=== PATIENT | female | born 1945 | race Caucasian/White ===

== ENCOUNTER → 2017-04-11 | Outpatient (CLI) | payer MEDICARE ==
--- NOTE | 2017-04-11 15:27 | RAD ---
CT lumbar spine without contrast History: Low back pain. Comparison: Same examination 10/27/2015. Technique: Noncontrast helical CT of the lumbar spine was performed. Axial, sagittal, and coronal reconstructions were obtained. One or more of the following individualized dose reduction techniques were utilized for the study: Automated exposure control Adjustment of mA and/or kV according to patient's size Use of iterative reconstruction technique. Findings: Evaluation of spinal contents is limited by lack of intrathecal contrast. Alignment of the lumbar spine demonstrates grade 1 spondylolisthesis at L4-5 from facet hypertrophy. There is no evidence of acute fracture or acute malalignment. No prevertebral soft tissue swelling is identified. There are 5 lumbar type vertebral bodies. T11-12 level demonstrates mild facet hypertrophy and mild buckling ligamentum flavum. Minimal posterior disc bulge is seen. L1-2 level demonstrates a minimal disc bulge. There is buckling of ligamentum flavum and mild bilateral facet hypertrophy. L2-3 level demonstrates interval progression of degenerative disc disease. There is significant interval loss of disc height as well as irregularity of the disc. There is interval development of disc calcification/osteophyte complex. There is a suspected severe spinal canal stenosis at this level with the AP dimension of the thecal sac in the midline of the spinal canal estimated to measure 5 mm. There is mild-moderate right and mild bilateral facet hypertrophy. There is buckling ligamentum flavum. Severe right and moderate left neural foraminal narrowing is seen. L3-4 level demonstrates progression of degenerative disc disease with vacuum disc phenomenon and increased severity of the disc bulge. There is moderate bilateral facet hypertrophy and buckling ligamentum flavum. Degenerative changes combined with enlargement of posterior epidural fat create moderate-severe spinal canal stenosis with AP dimension of the thecal sac estimated at 6-7 mm. There is mild right and moderate left neural foraminal narrowing. L4-5 level demonstrates uncovering of the disc secondary to spondylolisthesis. Severe bilateral facet hypertrophy is present. There is buckling ligamentum flavum. There is likely severe trefoil spinal canal stenosis with AP dimension of the thecal sac estimated at 5 mm. Mild-moderate bilateral neural foraminal narrowing is present. L5-S1 level demonstrates advanced bilateral facet hypertrophy. Degenerative disc disease with vacuum disc phenomenon and posterior disc osteophyte complex is seen. Severe bilateral neural foraminal narrowing is present. No spinal canal stenosis is identified. Impression: 1. Multilevel degeneration. 2. Degenerative disc disease at L2-3 has progressed. There is now severe spinal canal stenosis at this level. 3. Moderate-severe spinal canal stenosis is seen at L3-4 which is thought progressed from previous study. 4. L4-5 level demonstrates severe spinal canal stenosis which is thought progressed from previous study. 5. Multiple levels demonstrate neural foraminal narrowing, severe at L5-S1, with lesser neural foraminal narrowing at other levels.
== END | disposition home or self-care (01) ==
LOC: CT 12:58
PROVIDERS: ATTEND Anesthesiology Pain Medicine
DX: M54.16 Radiculopathy, lumbar region (principal); M51.36 Other intervertebral disc degeneration, lumbar region; M48.061 Spinal stenosis, lumbar region without neurogenic claudication
CPT/HCPCS: 72131

== ENCOUNTER 2017-05-13 18:04 | Emergency (ER) | payer MEDICARE ==
[~2017-05-13] VITALS: Ht 170.2 cm; Wt 108.9 kg
[2017-05-13 18:52] LABS: COLOR,URINE RED
[2017-05-13 18:53] LABS: BACTERIA,URINE 0 /HPF (0-FEW); BILIRUBIN,URINE NEG (NEG); CLARITY,URINE BLOODY; GLUCOSE,URINE NEG (NEG); NITRITE,URINE NEG (NEG); RBC,URINE TNTC /HPF (0-2); UROBILINOGEN,URINE 0.2 mg/dL (0.2 mg/dL); WBC,URINE OCC /HPF (0-4)
[2017-05-13] MEDS ORDERED: IV NORMAL SALINE 500ML 500 ML IV ONE (19:45)
[2017-05-13] MEDS ORDERED: IOHEXOL 300 MG/ML 75 ML VIAL. IV ONE (19:45)
[2017-05-13] MEDS ORDERED: CONTRAST GIVEN MC PRN (20:00)
[2017-05-13 20:52] LABS: CALCIUM 9.1 mg/dL (8.5-10.1); CREATININE 1.7 mg/dL (0.6-1.0); GFR 29.5; POTASSIUM 4.4 mmol/L (3.5-5.1)
[2017-05-13 20:53] LABS: BASO % 0 % (0-3); EOS # 0.4 x10^3/uL (0.0-0.7); EOS % 4 % (0-3); HEMATOCRIT 34.1 % (36.0-47.0); LYMPH # 1.5 x10^3/uL (1.0-4.8); LYMPH % 16 % (24-48); MEAN CORPUSCULAR HEMOGLOBIN 28 pg (25-35); MEAN CORPUSCULAR HGB CONC 32 g/dL (31-37); MEAN CORPUSCULAR VOLUME 85 fL (79-100); MONO % 11 % (0-9); NEUT # 6.5 x10^3uL (1.8-7.7); NEUT % 69 % (31-73); PLATELET COUNT 380 x10^3/uL (140-400); RED BLOOD COUNT 4.02 x10^6/uL (3.50-5.40); RED CELL DISTRIBUTION WIDTH 14.9 % (11.5-14.5); WHITE BLOOD COUNT 9.5 x10^3/uL (4.0-11.0)
--- NOTE | 2017-05-13 22:02 | RAD ---
Examination: CT of the abdomen pelvis without contrast HISTORY: History of hematuria, dysuria COMPARISON: None available TECHNIQUE: Axial CT images of the abdomen pelvis were performed without contrast. Coronal sagittal reformats are performed Exposure: One or more of the following individualized dose reduction techniques were utilized for this examination: 1. Automated exposure control 2. Adjustment of the mA and/or kV according to patient size 3. Use of iterative reconstruction technique FINDINGS: Minimal bibasilar lung atelectasis. No evidence of free air identified in the abdomen. The evaluation of the solid organs is limited due to lack of IV contrast. The evaluation of the bowel is limited due to lack of oral contrast. Visualized noncontrasted liver, spleen, adrenals grossly appears unremarkable.. Cholecystectomy clips identified. The stomach is mildly distended. Small duodenal diverticulum is identified at the junction second and third part of the duodenum. The visualized pancreas grossly appears unremarkable. The small bowel is nondilated. The appendix is normal. Feces and gas noted in the colon. Few sigmoid colon diverticulosis. Urinary bladder is mildly distended. In the posterior aspect of the urinary bladder abutting the posterior wall of the urinary bladder, there is a 3.1 x 1.6 cm hyperdensity. The visualized uterus, adnexa grossly appears unremarkable. There is a 5.1 x 3.9 cm masslike density identified in the anterior aspect of the right kidney measuring 15 Hounsfield units. Mild fat stranding identified about the bilateral kidneys. There is punctate 1 mm intrarenal collecting system calculus identified in the right kidney. No evidence of hydronephrosis. Small anterior abdominal wall ventral hernia. Moderate degenerative changes lumbar spine. Small posterior disc protrusion identified at L2-L3, L5-S1 vertebral levels. IMPRESSION: 1. 5.1 cm masslike density identified in the anterior aspect of the right kidney measuring 15 Hounsfield units could be renal mass or cyst. Recommend CT with IV contrast and/or ultrasound for further evaluation. 2. Hyperdensity identified abutting the posterior wall of the urinary bladder measuring 3.1 cm could be clot or mass. Recommend ultrasound urinary bladder for further evaluation. 2. Mild bilateral perinephric fat stranding, nonspecific. 4. Punctate 1 mm intrarenal collecting system calculus right kidney. Electronically signed by: Nicholas Sanchez MD (05/13/2017 9:58 PM) [facility]
--- NOTE | 2017-05-13 23:40 | PHYS DOC ---
Past History Past Medical History: Diabetes, Hypertension, Other Past Surgical History: No Surgical History Alcohol Use: None Drug Use: None Adult General Chief Complaint Chief Complaint: BLOOD IN URINE HPI HPI Patient is a 72 year old F who presents with blood in her urine over the past 2- 3 days. Shelley states that she has also had difficulty urinating. She states that she has passed large clots and after the clots are gone and she notes improvement in airflow. She denies pain in her back or abdomen. She denies discomfort with urination with when her flow seems to be normal. She has no other known associated symptoms. She has no known exacerbating or relieving factors. She has no history of smoker but has no extensive history of secondhand smoke. Review of Systems Review of Systems Constitutional: Denies fever or chills [] Eyes: Denies change in visual acuity, redness, or eye pain [] HENT: Denies nasal congestion or sore throat [] Respiratory: Denies cough or shortness of breath [] Cardiovascular: No additional information not addressed in HPI [] GI: Denies abdominal pain, nausea, vomiting, bloody stools or diarrhea [] : Denies dysuria Musculoskeletal: Denies back pain or joint pain [] Integument: Denies rash or skin lesions [] Neurologic: Denies headache, focal weakness or sensory changes [] Endocrine: Denies polyuria or polydipsia [] All other systems were reviewed and found to be within normal limits, except as documented in this note. Family History Family History No pertinent family medical was reported Current Medications Current Medications Current medications were reviewed Current Medications Medications (Trade) Dose Ordered Sig/[facility] Start Time Stop Time Status Last Admin Dose Admin Info (Do NOT chart on this entry -- for MONITORING) 1 each PRN DAILY PRN 05/13/17 20:00 05/15/17 19:59 Iohexol (Omnipaque 300 Mg/ml) 75 ml 1X ONCE 05/13/17 19:45 05/13/17 19:59 DC Sodium Chloride 500 ml @ 500 mls/hr 1X ONCE 05/13/17 19:45 05/13/17 20:44 DC 05/13/17 20:30 500 MLS/HR Allergies Allergies Allergies Coded Allergies Type Severity Reaction Last Updated Verified No Known Drug Allergies 05/13/17 No Physical Exam Physical Exam Constitutional: Well developed, well nourished, no acute distress, non-toxic appearance. [] HENT: Normocephalic, atraumatic, bilateral external ears normal, oropharynx moist, no oral exudates, nose normal. [] Eyes: EOMI, conjunctiva normal, no discharge. [] Neck: Normal range of motion, no tenderness, supple, no stridor. [] Cardiovascular:Heart rate regular rhythm, Lungs & Thorax: Bilateral breath sounds clear to auscultation [] Abdomen: Bowel sounds normal, soft, no tenderness, no masses, no pulsatile masses. [] Skin: Warm, dry, no erythema, no rash. [] Back: No tenderness, no CVA tenderness. [] Extremities: No tenderness, no cyanosis, no clubbing, ROM intact, no edema. [] Neurologic: Alert and oriented X 3, normal motor function, normal sensory function, no focal deficits noted. [] Psychologic: Affect normal, judgement normal, mood normal. [] Current Patient Data Vital Signs Vital Signs Date Time Temp Pulse Resp B/P (MAP) Pulse Ox O2 Delivery O2 Flow Rate FiO2 05/13/17 23:13 79 16 146/101 (116) 97 Room Air 05/13/17 18:14 98.2 Lab Results Laboratory Tests Test 05/13/17 18:33 05/13/17 20:08 Urine Collection Type U cath Urine Color Red Urine Clarity Bloody Urine pH 5.5 Urine Specific [place] 1.020 Urine Protein >100 mg/dl (NEG-TRACE) Urine Glucose (UA) Neg mg/dL (NEG) Urine Ketones (Stick) Neg mg/dL (NEG) Urine Blood Large (NEG) Urine Nitrite Neg (NEG) Urine Bilirubin Neg (NEG) Urine Urobilinogen Dipstick 0.2 mg/dL (0.2 mg/dL) Urine Leukocyte Esterase Neg (NEG) Urine RBC Tntc /HPF (0-2) Urine WBC Occ /HPF (0-4) Urine Squamous Epithelial Cells None /LPF Urine Bacteria 0 /HPF (0-FEW) White Blood Count 9.5 x10^3/uL (4.0-11.0) Red Blood Count 4.02 x10^6/uL (3.50-5.40) Hemoglobin 11.0 g/dL (12.0-15.5) L Hematocrit 34.1 % (36.0-47.0) L Mean Corpuscular Volume 85 fL (79-100) Mean Corpuscular Hemoglobin 28 pg (25-35) Mean Corpuscular Hemoglobin Concent 32 g/dL (31-37) Red Cell Distribution Width 14.9 % (11.5-14.5) H Platelet Count 380 x10^3/uL (140-400) Neutrophils (%) (Auto) 69 % (31-73) Lymphocytes (%) (Auto) 16 % (24-48) L Monocytes (%) (Auto) 11 % (0-9) H Eosinophils (%) (Auto) 4 % (0-3) H Basophils (%) (Auto) 0 % (0-3) Neutrophils # (Auto) 6.5 x10^3uL (1.8-7.7) Lymphocytes # (Auto) 1.5 x10^3/uL (1.0-4.8) Monocytes # (Auto) 1.0 x10^3/uL (0.0-1.1) Eosinophils # (Auto) 0.4 x10^3/uL (0.0-0.7) Basophils # (Auto) 0.0 x10^3/uL (0.0-0.2) Sodium Level 142 mmol/L (136-145) Potassium Level 4.4 mmol/L (3.5-5.1) Chloride Level 104 mmol/L (98-107) Carbon Dioxide Level 24 mmol/L (21-32) Anion Gap 14 (6-14) Blood Urea Nitrogen 34 mg/dL (7-20) H Creatinine 1.7 mg/dL (0.6-1.0) H Estimated GFR (Cockcroft-Gault) 29.5 Glucose Level 120 mg/dL (70-99) H Calcium Level 9.1 mg/dL (8.5-10.1) EKG EKG [] Radiology/Procedures Radiology/Procedures Examination: CT of the abdomen pelvis without contrast HISTORY: History of hematuria, dysuria COMPARISON: None available TECHNIQUE: Axial CT images of the abdomen pelvis were performed without contrast. Coronal sagittal reformats are performed Exposure: One or more of the following individualized dose reduction techniques were utilized for this examination: 1. Automated exposure control 2. Adjustment of the mA and/or kV according to patient size 3. Use of iterative reconstruction technique FINDINGS: Minimal bibasilar lung atelectasis. No evidence of free air identified in the abdomen. The evaluation of the solid organs is limited due to lack of IV contrast. The evaluation of the bowel is limited due to lack of oral contrast. Visualized noncontrasted liver, spleen, adrenals grossly appears unremarkable.. Cholecystectomy clips identified. The stomach is mildly distended. Small duodenal diverticulum is identified at the junction second and third part of the duodenum. The visualized pancreas grossly appears unremarkable. The small bowel is nondilated. The appendix is normal. Feces and gas noted in the colon. Few sigmoid colon diverticulosis. Urinary bladder is mildly distended. In the posterior aspect of the urinary bladder abutting the posterior wall of the urinary bladder, there is a 3.1 x 1.6 cm hyperdensity. The visualized uterus, adnexa grossly appears unremarkable. There is a 5.1 x 3.9 cm masslike density identified in the anterior aspect of the right kidney measuring 15 Hounsfield units. Mild fat stranding identified about the bilateral kidneys. There is punctate 1 mm intrarenal collecting system calculus identified in the right kidney. No evidence of hydronephrosis. Small anterior abdominal wall ventral hernia. Moderate degenerative changes lumbar spine. Small posterior disc protrusion identified at L2-L3, L5-S1 vertebral levels. IMPRESSION: 1. 5.1 cm masslike density identified in the anterior aspect of the right kidney measuring 15 Hounsfield units could be renal mass or cyst. Recommend CT with IV contrast and/or ultrasound for further evaluation. 2. Hyperdensity identified abutting the posterior wall of the urinary bladder measuring 3.1 cm could be clot or mass. Recommend ultrasound urinary bladder for further evaluation. 2. Mild bilateral perinephric fat stranding, nonspecific. 4. Punctate 1 mm intrarenal collecting system calculus right kidney. Electronically signed by: Nicholas Sanchez MD (05/13/2017 9:58 PM) [facility] Course & Med Decision Making Course & Med Decision Making Pertinent Labs and Imaging studies reviewed. (See chart for details) She was unable to urinate likely due to urinary obstruction. A catheter was placed. Dragon Disclaimer Dragon Disclaimer This electronic medical record was generated, in whole or in part, using a voice recognition dictation system. Departure Departure: Impression: Primary Impression: Urinary obstruction Additional Impressions: Hematuria Bladder mass Right kidney mass Disposition: 05 XFER OTHER Condition: STABLE Referrals: BEA CHONG MD (PCP) Problem Qualifiers Additional Impressions: Hematuria Hematuria type: unspecified type Qualified Codes: R31.9 - Hematuria, unspecified MARCI CARR MD May 13, 2017 23:40
[2017-05-14 01:14] VITALS: BP 133/62
== END 2017-05-14 01:22 | disposition short-term general hospital (02) ==
LOC: ER 18:04
DX: N13.9 Obstructive and reflux uropathy, unspecified (principal); R31.9 Hematuria, unspecified; N32.89 Other specified disorders of bladder; N28.89 Other specified disorders of kidney and ureter; E11.9 Type 2 diabetes mellitus without complications; I10 Essential (primary) hypertension
CPT/HCPCS: 36415; 51702; 74176; 80048; 81001; 85025; 96360; 99285; J7040

== ENCOUNTER → 2017-06-27 | Outpatient (CLI) | payer MEDICARE ==
[~2017-06-27] MED LIST: FUROSEMIDE 40 MG/4 ML VIAL IVP ONE
--- NOTE | 2017-06-28 14:14 | RAD ---
Indication: Abnormal findings right kidney. Technique: Renogram utilized 6.0 mCi technetium 99m labeled MAG3. 40 mg of Lasix was administered. CT from May 13, 2017 was reviewed in comparison. Findings: Time to peak is 4.5 minutes on the left and 5.5 minutes on the right.. Uptake is 52% within the left kidney and 48% within the right kidney. Time to one half peak pre-Lasix is 11.8 minutes on the left and 15.0 minutes on the right. Given much of the radiotracer already has been excreted at the time of Lasix administration, time to one half peak is post Lasix administration is likely inaccurate, 14.8 minutes on the left and 15.8 minutes on the right. Impression: 1. Nonobstructive pattern on MAG3 scan with Lasix administration. 2. The study does not aid in evaluating the indeterminate lesion in the right kidney noted on recent CT. Ultrasound or multiphase CT would be recommended for this lesion.
== END | disposition home or self-care (01) ==
LOC: NM 10:15
DX: R93.421 Abnormal radiologic findings on diagnostic imaging of right kidney (principal); I10 Essential (primary) hypertension; E11.9 Type 2 diabetes mellitus without complications
CPT/HCPCS: 78708; 96374; 96375; A9562; J1940

== ENCOUNTER → 2019-11-03 | Outpatient (CLI) | payer MEDICARE ==
[2019-11-03 15:39] LABS: HEMATOCRIT 32.6 % (36.0-47.0); HEMOGLOBIN 10.4 g/dL (12.0-15.5)
[2019-11-03 15:47] LABS: ALBUMIN 2.7 g/dL (3.4-5.0); CALCIUM 8.8 mg/dL (8.5-10.1); CREATININE 3.3 mg/dL (0.6-1.0); GFR 13.6; PHOSPHORUS 3.7 mg/dL (2.6-4.7); POTASSIUM 5.3 mmol/L (3.5-5.1)
[2019-11-04 08:13] LABS: CALCIUM PTH 8.9 mg/dL (8.7-10.3); CREATININE PTH 3.05 mg/dL (0.57-1.00); PTH INTACT 149 pg/mL (15-65)
== END | disposition home or self-care (01) ==
LOC: LAB 12:08
PROVIDERS: ATTEND Internal Medicine Nephrology
DX: N18.5 Chronic kidney disease, stage 5 (principal)
CPT/HCPCS: 36415; 80069; 83970; 84100; 85014; 85018

== ENCOUNTER → 2019-12-17 | Outpatient (CLI) | payer MEDICARE ==
[2019-12-17 12:56] LABS: HEMATOCRIT 34.8 % (36.0-47.0); HEMOGLOBIN 11.1 g/dL (12.0-15.5)
[2019-12-17 16:23] LABS: CALCIUM 9.1 mg/dL (8.5-10.1); CREATININE 3.6 mg/dL (0.6-1.0); GFR 12.3; POTASSIUM 4.7 mmol/L (3.5-5.1)
== END ==
LOC: LAB 11:44
PROVIDERS: ATTEND Nurse Practitioner Adult Health
DX: I12.9 Hypertensive chronic kidney disease with stage 1 through stage 4 chronic kidney disease, or unspecified chronic kidney disease (principal); N18.5 Chronic kidney disease, stage 5
CPT/HCPCS: 36415; 80069; 82728; 83540; 85014; 85018

== ENCOUNTER → 2019-12-23 | Outpatient (CLI) | payer MEDICARE ==
--- NOTE | 2019-12-23 11:09 | RAD ---
CHEST PA LATERAL History: Clearance for dialysis Comparison: 04/30/2015. Findings: 2 views of the chest are submitted. There is small left pleural effusion, adjacent airspace opacity. Pericardial cardiac silhouette is again somewhat enlarged. There is thoracic spinal stimulator leads terminate in the mid thoracic level. There is no pneumothorax. There is atherosclerotic calcification near aortic arch. There is somewhat tortuous thoracic aorta. Impression: 1. There is small left pleural effusion with adjacent airspace opacity which may be atelectasis although infiltrate not excluded. Electronically signed by: Quinton Andrade MD (12/23/2019 11:06 AM) [id number]
== END ==
LOC: DXRAD 09:20
PROVIDERS: ATTEND Nurse Practitioner Adult Health
DX: J90 Pleural effusion, not elsewhere classified (principal); E11.22 Type 2 diabetes mellitus with diabetic chronic kidney disease; I12.9 Hypertensive chronic kidney disease with stage 1 through stage 4 chronic kidney disease, or unspecified chronic kidney disease; N18.5 Chronic kidney disease, stage 5; D64.9 Anemia, unspecified; R60.0 Localized edema; E55.9 Vitamin D deficiency, unspecified; Z68.37 Body mass index [BMI] 37.0-37.9, adult
CPT/HCPCS: 71046; 86704; 86706; 86803; 87340

== ENCOUNTER 2020-04-23 20:20 | Emergency (ER) | payer MEDICARE ==
[~2020-04-23] VITALS: Ht 170.2 cm; Wt 90.9 kg
--- NOTE | 2020-04-23 20:28 | PHYS DOC ---
Past History Past Medical History: CAD, CHF, Diabetes, Hypertension, Renal Failure, Other Past Surgical History: No Surgical History Alcohol Use: None Drug Use: None General Adult HPI: HPI: "... I fell the other day.. hurt my knee...I have not had dialysis because I could not get up and go.....' " I get dialysis here at [facility].... but have been going to [facility]... for everything else... . Because they had problems with my dialysis and now I have a line on my chest".. " I need d ialysis.. ".." I know the business development director told me you don't do dialysis.. but I though you could do it anyway...".." I just need dialysis .. so I can breath better..." "and see if my Rt. knee is fractured..." Patient is a 75 year old female who presents with fall two days ago. Pt. unable to ambulate since fall because pain in Rt knee. . Pt. HD on , , Sunday. Missed HD two days ago and today. Patient unable to bear weight on right leg because of knee and lower leg pain. Patient normally follows locally with Dr. Guzman, but at [facility] for surgical repair for her dialysis shunt. Patient gets hemodialysis here at [facility] in [place]. No recent travel. No specific ill contacts. Has past medical history of diabetes, hypertension, end-stage renal disease, degenerative joint disease, arthritis, obesity, kidney stones, renal mass status post surgery. Patient normally fo llows at [facility] for all in pt. and surgical, and renal care. . Patient refused transport to [facility]. Patient refused transport to [facility], demanded to be transported to [facility] After arrival patient demanding to be transported to [facility] for dialysis. Pt. does take daily aspirin. Pt. denies travel or specific ill contacts. Review of Systems: Review of Systems: Constitutional: Denies fever or chills Eyes: Denies change in visual acuity HENT: Denies nasal congestion or sore throat Respiratory: Complaints of shortness of breath Cardiovascular: Denies chest pain . Complaints of Rt. leg edema after fall. GI: Denies abdominal pain, nausea, vomiting, bloody stools or diarrhea : Denies dysuria Musculoskeletal: Denies back pain or joint pain Integument: Denies rash Neurologic: Denies headache, focal weakness or sensory changes Endocrine: Denies polyuria or polydipsia Lymphatic: Denies swollen glands Psychiatric: Denies depression or anxiety Family History: Family History: Noncontributory to presentation Current Medications: Current Meds: See nursing for home meds Allergies: Allergies: Allergies Coded Allergies Type Severity Reaction Last Updated Verified No Known Drug Allergies 05/13/17 No Physical Exam: PE: Constitutional: Moderate acute distress, chronically ill and appearance. [] HENT: Normocephalic, atraumatic, bilateral external ears normal, oropharynx moist, no oral exudates, nose normal. [] Eyes: PERRLA, EOMI, conjunctiva normal, no discharge. [] Neck: Normal range of motion, no tenderness, supple, no stridor. [] Cardiovascular: Tachycardia heart rate regular rhythm, no murmur, PMI to the left Lungs & Thorax: Bilateral breath sounds equal apex with scattered wheezes and basilar crackles bilaterally on auscultation [. Patient] has a port in the left upper chest wall. Abdomen: Bowel sounds normal, soft, no tenderness, no masses, no pulsatile masses. [] Skin: Warm, dry, no erythema, no rash. Poor turgor Back: No tenderness, no CVA tenderness. [] Extremities: Right knee and lower leg tenderness, no cyanosis, no clubbing, ROM intact, bilateral lower leg edema with more on right leg. Unable to lift right leg off of bed. Because of pain in knee. Neurologic: Alert and oriented X 3, moves all extremities on request however markedly decreased ability to use right leg because of pain, decreased plantar l sensory function, no focal deficits noted. [] Psychologic: Affect anxious, judgement somewhat limited insight to her medical issues because demand to be transferred to [facility] in spite of the fact no hemodialysis offered here, mood normal. [] EKG: EKG: My interpretation EKG shows a sinus rhythm at 96 bpm. Irregular beats.. Some appearance of A. fib. [] Radiology/Procedures: Radiology/Procedures: [][address] [address] IMAGING REPORT Signed PATIENT: JESSICA POLLOCK ACCOUNT: [id number] : 1945 LOCATION: ER AGE: 75 SEX: F EXAM STATUS: REG ER ORD. PHYSICIAN: CLYDE BLEVINS MD REASON: fall PROCEDURE: PORTABLE CHEST 1V XR KNEE 3 VIEWS_RT, XR RT TIBIA+FIBULA , XR CHEST 1V Clinical History: Reason: fall / Spl. Instructions: / History: One view chest: Technique: AP view of the chest was obtained at 04/23/2020 9:30 PM. Comparison: December 23, 2019. Findings: The heart is moderately large. The pulmonary vessels appear slightly cephalized. There is patchy opacity in the lung bases and obscuration left hemidiaphragm. There is a left-sided jugular dual-lumen catheter with its tip downward in the low SVC and there is a cyst dorsal column stimulator which was seen previously. Impression: 1. Moderate cardiomegaly. 2. Small left effusion seen previously. 3. Possible mild fluid overload. End impression Right tibia fibula AP lateral views Is marked degenerative changes the right knee. There is arterial calcification. The remaining visualized osseous structures appear normal. IMPRESSION: No acute findings. End impression 3 views right knee: AP lateral oblique views There is marked degenerative changes with marginal spurring of all 3 compartments and there is complete loss of joint space in the medial compartment. There is no lytic destructive changes. IMPRESSION: Severe osteoarthrosis. No acute findings. Electronically signed by: Bernie Price III, MD (04/23/2020 10:15 PM) [facility] DICTATED AND SIGNED BY: BERNIE PRICE III, MD DATE: 04/23/202208 CC: CLYDE BLEVINS MD; BEA GUZMAN MD ~MTH0 0 Heart Score: HEART Score for Chest Pain: HEART Score for Chest Pain Response (Comments) Value History Moderately Suspicious 1 ECG Nonspecific Repolarizatio 1 Age > 65 2 Risk Factors 1 or 2 Risk Factors 1 Troponin >3 x Normal Limit 2 Total 7 Risk Factors: Risk Factors: DM, Current or recent (<one month) smoker, HTN, HLP, family history of CAD, obesity. Risk Scores: Score 0 - 3: 2.5% MACE over next 6 weeks - Discharge Home Score 4 - 6: 20.3% MACE over next 6 weeks - Admit for Clinical Observation Score 7 - 10: 72.7% MACE over next 6 weeks - Early Invasive Strategies Course & Med Decision Making: Course & Med Decision Making Pertinent Labs and Imaging studies reviewed. (See chart for details) Discussed presentation, testing and treatment plan with . Will accept pt in transfer to [facility]. Will most like need cardiology, renal and ortho consults. Pt. given dose of Vanco. for coverage infection process. Pt. elevated Trop a concern. Will need cardiology in put. Will need HD because of pul. edema and fluid over load. Pt. declined heparin. States she would get it when she got dialysis. Impression: 1. End-stage renal disease with hemodialysis on Wednesdays and Fridays 2. Pulmonary edema secondary to fluid overload-missed dialysis x2 3. Right knee pain after fall.(-No fracture noted on Xray) 4. Leukocytosis 15.6 5. Anemia hemoglobin 9.2 6. Malnutrition albumin 2.1 7. Elevated troponin 6.062 and CK 223 8. A. fib [] Dragon Disclaimer: Dragon Disclaimer: This electronic medical record was generated, in whole or in part, using a voice recognition dictation system. Departure Departure: Referrals: BEA GUZMAN MD (PCP) Velia Disclaimer This chart was dictated in whole or in part using Voice Recognition software in a busy, high-work load, and often noisy Emergency Department environment. It may contain unintended and wholly unrecognized errors or omissions. Dragon Disclaimer This chart was dictated in whole or in part using Voice Recognition software in a busy, high-work load, and often noisy Emergency Department environment. It may contain unintended and wholly unrecognized errors or omissions. CLYDE BLEVINS MD Apr 23, 2020 20:28
[2020-04-23 21:20] LABS: BASO # 0.1 x10^3/uL (0.0-0.2); BASO % 0 % (0-3); EOS % 0 % (0-3); HEMATOCRIT 29.5 % (36.0-47.0); HEMOGLOBIN 9.2 g/dL (12.0-15.5); LYMPH # 0.1 x10^3/uL (1.0-4.8); LYMPH % 1 % (24-48); MEAN CORPUSCULAR HEMOGLOBIN 28 pg (25-35); MEAN CORPUSCULAR HGB CONC 31 g/dL (31-37); MEAN CORPUSCULAR VOLUME 88 fL (79-100); MONO # 0.4 x10^3/uL (0.0-1.1); MONO % 2 % (0-9); NEUT % 96 % (31-73); PLATELET COUNT 225 x10^3/uL (140-400); RED BLOOD COUNT 3.35 x10^6/uL (3.50-5.40); RED CELL DISTRIBUTION WIDTH 15.3 % (11.5-14.5); WHITE BLOOD COUNT 15.6 x10^3/uL (4.0-11.0)
[2020-04-23 21:35] LABS: BILIRUBIN,URINE NEG (NEG); CLARITY,URINE HAZY; COLOR,URINE YELLOW; GLUCOSE,URINE 250 mg/dL (NEG); NITRITE,URINE NEG (NEG); UROBILINOGEN,URINE 0.2 mg/dL (0.2 mg/dL)
[2020-04-23 21:37] LABS: CALCIUM 7.8 mg/dL (8.5-10.1); CREATININE 4.6 mg/dL (0.6-1.0); GFR 9.3
[2020-04-23 21:38] LABS: BGAS PH 7.48 (7.35-7.45)
[2020-04-23 21:39] LABS: BACTERIA,URINE FEW /HPF (0-FEW); SQUAMOUS EPITHELIAL CELL,UR MANY /LPF
[2020-04-23 21:40] LABS: AMORPHOUS SEDIMENT,UR PRESENT /HPF
[2020-04-23 21:50] LABS: ALBUMIN 2.1 g/dL (3.4-5.0); MAGNESIUM 1.7 mg/dL (1.8-2.4); TOTAL BILIRUBIN 0.8 mg/dL (0.2-1.0); TOTAL PROTEIN 6.5 g/dL (6.4-8.2)
[2020-04-23 21:53] LABS: % BASOS 11 % (0-3); % MONOS 5 % (0-10); % SEGS 84 % (35-66)
[2020-04-23 21:57] LABS: PLT ESTIMATE ADEQUATE (ADEQUATE)
[2020-04-23] MEDS ORDERED: MORPHINE SULFATE 10 MG/ML SYRINGE. SQ ONE (22:00)
[2020-04-23] MEDS ORDERED: VANCOMYCIN PER PHARMACY MC PRN (22:00)
[2020-04-23] MEDS ORDERED: VANCOMYCIN 1 GM in IV NORMAL SALINE 250ML 250 ML IV ONE (22:00)
[2020-04-23 22:16] LABS: DIRECT BILIRUBIN 0.4 mg/dL (0.0-0.2)
--- NOTE | 2020-04-23 22:17 | RAD ---
XR KNEE 3 VIEWS_RT, XR RT TIBIA+FIBULA , XR CHEST 1V Clinical History: Reason: fall / Spl. Instructions: / History: One view chest: Technique: AP view of the chest was obtained at 04/23/2020 9:30 PM. Comparison: December 23, 2019. Findings: The heart is moderately large. The pulmonary vessels appear slightly cephalized. There is patchy opac ity in the lung bases and obscuration left hemidiaphragm. There is a left-sided jugular dual-lumen ca theter with its tip downward in the low SVC and there is a cyst dorsal column stimulator which was se en previously. Impression: 1. Moderate cardiomegaly. 2. Small left effusion seen previously. 3. Possible mild fluid overload. End impression Right tibia fibula AP lateral views Is marked degenerative changes the right knee. There is arterial calcification. The remaining visuali zed osseous structures appear normal. IMPRESSION: No acute findings. End impression 3 views right knee: AP lateral oblique views There is marked degenerative changes with marginal spurring of all 3 compartments and there is comple te loss of joint space in the medial compartment. There is no lytic destructive changes. IMPRESSION: Severe osteoarthrosis. No acute findings. Electronically signed by: Juan Bradley III, MD (04/23/2020 10:15 PM) [facility]
[2020-04-23] MEDS ORDERED: ASPIRIN 325 MG TABLET PO ONE (22:30)
[2020-04-23] MEDS ORDERED: VANCOMYCIN 2 GM in IV NORMAL SALINE 500ML 500 ML IV ONE (22:30)
[2020-04-23] MEDS ORDERED: VANCOMYCIN 1 GM VIAL. ONE (22:39)
[2020-04-23] MEDS ORDERED: IV NORMAL SALINE 500ML 500 ML ONE (22:39)
[2020-04-23 22:46] LABS: INFLUENZA A PATIENT NEGATIVE (NEGATIVE); INFLUENZA B PATIENT NEGATIVE (NEGATIVE)
[2020-04-24] VITALS: BP 152/63
--- NOTE | 2020-04-24 03:29 | EKG ---
[address] [address] Test Date: 2020-04-23 Test Time: 20:51:02 Pat Name: JESSICA POLLOCK Department: Room: Gender: F [employer] W[employer]: : 1945 Requested By: CLYDE BLEVINS Order Number: [id number] Reading MD: Measurements Intervals [place] Rate: 96 P: [place]: QRS: 6 QRSD: 86 T: 18 QT: 366 QTc: 469 Interpretive Statements IRREGULAR RHYTHM, NO P-WAVE FOUND NO SPECIFIC ECG ABNORMALITIES RI6.02 No previous ECG available for comparison
== END 2020-04-24 00:38 | disposition short-term general hospital (02) ==
LOC: ER 20:20
DX: J81.1 Chronic pulmonary edema (principal); D64.9 Anemia, unspecified; I13.2 Hypertensive heart and chronic kidney disease with heart failure and with stage 5 chronic kidney disease, or end stage renal disease; N18.6 End stage renal disease; I50.84 End stage heart failure; D72.829 Elevated white blood cell count, unspecified; R77.8 Other specified abnormalities of plasma proteins; I48.91 Unspecified atrial fibrillation; M25.561 Pain in right knee; E46 Unspecified protein-calorie malnutrition; Z68.31 Body mass index [BMI] 31.0-31.9, adult; Z20.822 Contact with and (suspected) exposure to COVID-19
CPT/HCPCS: 36415; 71045; 73562; 73590; 80048; 80076; 81001; 82550; 82803; 83690; 83735; 83880; 84443; 84484; 85007; 85025; 85379; 85610; 85730; 87040; 87077; 87086; 87186; 87205; 87804; 93005; 96365; 96366; 96372; 99285; C9803; J2270; J3370; J7040; U0003